=== PATIENT | female | born 1945 | race Caucasian/White ===

== ENCOUNTER → 2019-06-14 15:18 | Outpatient (BNVA) | payer MEDICARE, OTHER, SELFPAY | PROVIDERS: Family Provider Family Medicine; PCP Family Medicine; Visit Provider Emergency Medicine | DX: N39.0 Urinary tract infection, site not specified (principal) | CPT/HCPCS: 81003 ==

== ENCOUNTER 2021-03-26 11:17 | Emergency (ER) | payer MEDICARE, OTHER, SELFPAY ==
[2021-03-26 11:27] VITALS: BP 187/127; PULSE 84; RESP 16; O2SAT 98; BMI 27.4
--- NOTE | 2021-03-26 11:29 | ED_ITS ---
HPI - Neuro Symptoms/Deficit General: Chief Complaint: Dizziness Stated Complaint: DIZZY/NEEDS STROKE EVAL PER DR. RUIZ Time Seen by Provider: 03/26/21 11:28 History of Present Illness: HPI Narrative: Ms James is a 75-year-old lady with history of hypertension and hyperlipidemia presents to the emergency department due to strokelike episode. She reports being at her baseline health with the exception of what she describes as a head cold evolving congestion and mild cough over the past week. This is remained largely the same and is mild to moderate intensity of the description. This morning she woke up and got out of bed at approximately 630 and noticed a dizzy feeling. She had difficulty walking however has difficulty characterizing whether it was a spinning sensation or off-balance sensation. She describes it as her legs not doing what she wants to. She was evaluated at clinic and they are found to have hypertension, facial droop, and visual disturbance. At worst intensity symptoms of off balance have been severe however is now improved. No associated other neurologic symptoms or headache. Denies similar episodes in the past. Supplemental information provided by family feels that over the past year she has had perhaps more confusion and feels like her speech is abnormal today. Overall the course of symptoms has improved. No other specific exacerbating or alleviating factors identified. Review of Systems General: Reports: 10 or more systems reviewed and unremarkable except in HPI and below PFSH ED PFSH: Medical History (Updated 03/26/21 @ 17:14 by Pa Flores MD) Stroke-like episode Social History Smoking and tobacco status: never smoked Alcohol intake: never Physical Exam Narrative: EXAM NARRATIVE: GENERAL/CONSTITUTIONAL - well-appearing. No acute distress. Eyes - PERRL, no conjunctival injection ENMT - Atraumatic external nose and ears. Moist mucous membranes NECK - supple. trachea midline CARDIOVASCULAR - regular rate and rhythm. Peripheral pulses 2+ and equal RESPIRATORY -clear to auscultation bilaterally. No retractions or accessory muscle use. ABDOMEN/GI - Nontender/Nondistended. No tenderness to percussion or evidence of peritonitis MSK - Extremities without obvious deformity or tenderness to palpation SKIN - Warm, Dry NEURO - alert and appropriately oriented. Cranial nerves II through XII intact. Coordination, strength and sensation intact. Course ED course: - Patient was seen and evaluated by me at bedside - Patient placed on cardiac monitors, IV access obtained - Initial evaluation notable for exam as above, NIHSS 0 - Labs notable for no leukocytosis, normal hemoglobin. Metabolic panel with likely evidence of mild dehydration, magnesium is low and replenishment ordered. Urinalysis difficult interpret/atypical given nitrate positive with 4+ bacteria but no other evidence of urinary tract infection. Given age and likely age- related cognitive decline in addition to event today this will be treated as mental status changes associated with UTIs is fairly common in elderly patients. - Imaging notable for chest x-ray with pulmonary nodules which were discussed with the patient including need for follow-up CT. Given neurologic symptoms head imaging was prioritized with contrast and patient only has 1 kidney with borderline creatinine. I do not feel that a second dose of contrast for his CT chest would be beneficial in this patient nor is the evaluation of these p ulmonary nodules necessarily emergent if he can be obtained outpatient in a reasonable period of time. CT head negative for acute process. CTA with less than 50% stenosis in the cervical ICA. Moderate amount of calcified plaque in the cavernous and supraclinoid carotid arteries. These likely are not severe enough to cause acute neurologic findings. - Upon serial reexamination after treatment the patient was similar without recurrence of neurologic abnormalities - Based on patient history, evaluation, labs, and imaging as interpreted the most likely cause of the patient's condition is TIA and urinary tract infection. - Discussed case with neurology, patient will be placed on aspirin, Plavix, already on a statin which I instructed to increase to full dose daily. - The results of ED evaluation were discussed with the patient including prescriptions and/or symptomatic cares (if applicable) including appropriate and responsible use, followup plan, and return precautions. The patient and patient's family verbalized understanding and felt safe for discharge. - Patient discharged in satisfactory condition. Vital Signs: Vital signs: Vital Signs Pulse Rate 62 03/26/21 17:41 Respiratory Rate 14 03/26/21 17:41 Blood Pressure 144/81 03/26/21 17:41 Pulse Oximetry 97 03/26/21 17:41 MDM - Neuro Symptoms/Deficit Medical Records: Attestation: I reviewed the patient's medical records. Lab Data: Attestation: I reviewed the patient's lab results. Labs: Lab Results 03/26/21 03/26/21 03/26/21 11:38 11:38 11:38 WBC 8.3 10^3/uL 10^3/ uL (4.0-10.0) RBC 4.54 10^6/uL 10^6 /uL (4.1-5.3) Hgb 14.0 g/dL g/dL (11.5-15.3) Hct 44.1 % % (37.0-47.0) MCV 97.1 fl fl (81-99) MCH 30.8 pg pg (28.0-34.0) MCHC 31.7 g/dL g/dL (30.0-36.0) RDW 14.7 % % (12.1-15.1) Plt Count 285 10^3/cmm 10^3 /cmm (130-400) MPV 9.2 fL fL (7.4-10.4) Neut % (Auto) 61.1 % % Lymph % (Auto) 28.2 % % Emmet % (Auto) 8.1 % % Eos % (Auto) 1.3 % % Baso % (Auto) 0.6 % % Neut # (Auto) 5.04 10^3/uL 10^3 /uL (1.8-7.7) Lymph # (Auto) 2.3 10^3/uL 10^3/ uL (0.8-4.8) Emmet # (Auto) 0.7 10^3/uL 10^3/ uL (0.2-0.9) Eos # (Auto) 0.1 10^3/uL 10^3/ uL (0.0-0.8) Baso # (Auto) 0.1 10^3/uL 10^3/ uL (0.0-0.1) Nucleated RBC % (a uto) 0 % % Nucleated RBCs # 0.0 /100WBC /100W BC Sodium Cancelled Potassium Cancelled Chloride Cancelled Carbon Dioxide Cancelled Anion Gap Cancelled BUN Cancelled Creatinine Cancelled GFR Calculation Cancelled Glucose Cancelled POC Glucose Calculated Osmolal ity Cancelled Calcium Cancelled Magnesium Cancelled Total Bilirubin Cancelled AST Cancelled ALT Cancelled Alkaline Phosphata se Cancelled Troponin T Baselin e Cancelled Troponin T 120 Min [place] Troponin T NT-Pro-B Natriuret Pep Cancelled Total Protein Cancelled Albumin Cancelled Globulin Cancelled TSH Urine Color Urine Appearance Urine pH Ur Specific Gravit y Urine Protein Urine Glucose (UA) Urine Ketones Urine Blood Urine Nitrate Urine Bilirubin Urine Urobilinogen Ur Leukocyte Justa ase Urine RBC Urine WBC Ur Squamous Epith Cells Amorphous Sediment Urine Bacteria 03/26/21 03/26/21 03/26/21 11:38 12:21 12:21 WBC RBC Hgb Hct MCV MCH MCHC RDW Plt Count MPV Neut % (Auto) Lymph % (Auto) Emmet % (Auto) Eos % (Auto) Baso % (Auto) Neut # (Auto) Lymph # (Auto) Emmet # (Auto) Eos # (Auto) Baso # (Auto) Nucleated RBC % (a uto) Nucleated RBCs # Sodium 132 mmol/L L mmol /L (136-145) Potassium 4.8 mmol/L mmol/L (3.5-5.1) Chloride 97 mmol/L L mmol/ L (98-107) Carbon Dioxide 20 mmol/L L mmol/ L (22-29) Anion Gap 19.8 H (5-19) BUN 23 mg/dL mg/dL (8-23) Creatinine 1.3 mg/dL H mg/dL (0.5-0.9) GFR Calculation Not Reportable Glucose 97 mg/dL mg/dL (65-115) POC Glucose Calculated Osmolal ity 278 mOsm/kg L mOs m/kg (285-295) Calcium 9.5 mg/dL mg/dL (8.5-10.5) Magnesium 1.3 mg/dL L mg/dL (1.7-2.3) Total Bilirubin 0.4 mg/dL mg/dL (0.15-1.2) AST 17 U/L U/L (0-32) ALT 10 U/L U/L (0-33) Alkaline Phosphata se 58 IU/L IU/L (35-105) Troponin T Baselin e 18 ng/L H ng/L (0-10) Troponin T 120 Min [place] Troponin T NT-Pro-B Natriuret Pep 309 pg/mL pg/mL (0-450) Total Protein 7.5 g/dL g/dL (6.6-8.7) Albumin 4.3 g/dL g/dL (3.5-5.2) Globulin 3.2 g/dL g/dL (1.3-4.6) TSH Cancelled 3.80 uIU/mL uIU/m L (0.27-4.20) Urine Color Urine Appearance Urine pH Ur Specific Gravit y Urine Protein Urine Glucose (UA) Urine Ketones Urine Blood Urine Nitrate Urine Bilirubin Urine Urobilinogen Ur Leukocyte Justa ase Urine RBC Urine WBC Ur Squamous Epith Cells Amorphous Sediment Urine Bacteria 03/26/21 03/26/21 03/26/21 13:58 14:21 15:40 WBC RBC Hgb Hct MCV MCH MCHC RDW Plt Count MPV Neut % (Auto) Lymph % (Auto) Emmet % (Auto) Eos % (Auto) Baso % (Auto) Neut # (Auto) Lymph # (Auto) Emmet # (Auto) Eos # (Auto) Baso # (Auto) Nucleated RBC % (a uto) Nucleated RBCs # Sodium Potassium Chloride Carbon Dioxide Anion Gap BUN Creatinine GFR Calculation Glucose POC Glucose 93 mg/dL mg/dL (70-110) Calculated Osmolal ity Calcium Magnesium Total Bilirubin AST ALT Alkaline Phosphata se Troponin T Baselin e Troponin T 120 Min [place] 23.32 ng/L H ng/L (0-10) Delta Troponin T 5.32 ABS# ABS# (0-10) NT-Pro-B Natriuret Pep Total Protein Albumin Globulin TSH Urine Color Yellow (Yellow) Urine Appearance Clear (CLEAR) Urine pH 7 (5-7) Ur Specific Gravit y 1.005 (1.005-1.030) Urine Protein Neg (Negative) Urine Glucose (UA) Norm (Normal) Urine Ketones Negative (Negative) Urine Blood Neg (Negative) Urine Nitrate Positive H (Negative) Urine Bilirubin Neg (Negative) Urine Urobilinogen Norm mg/dL mg/dL (Negative) Ur Leukocyte Justa ase Negative (Negative) Urine RBC Rare /hpf /hpf (0-2) Urine WBC 0-4 /hpf H /hpf (0-5) Ur Squamous Epith Cells None /hpf /hpf (0-5) Amorphous Sediment Not Reportable Urine Bacteria 4+ /hpf H /hpf (NONE) EKG Data^: EKG 1: Attestation: I personally reviewed and interpreted this EKG as follows: EKG interpretation date: 03/26/21 EKG interpretation time: 11:39 Interpretation: Twelve-lead EKG shows a regular rhythm at a rate of 67. GA interval 132, QRS duration 104, QTc 416. Normal axis. Interpretation: Sinus rhythm, nonspecific ST segment abnormalities. EKG 2: Attestation: I personally reviewed and interpreted this EKG as follows: EKG interpretation date: 03/26/21 EKG interpretation time: 13:52 Interpretation: Twelve-lead EKG shows a regular rhythm at a rate of 60. GA interval 141, QRS duration 98, QTc 427. Normal axis. Interpretation: Sinus rhythm. Nonspecific ST segment abnormalities. EKG 3: Attestation: I personally reviewed and interpreted this EKG as follows: EKG interpretation date: 03/26/21 EKG interpretation time: 14:26 Interpretation: Twelve-lead EKG shows a regular rhythm at a rate of 64. GA interval 184, QRS duration 94, QTc 423 Normal axis. Interpretation: Sinus rhythm. Nonspecific ST segment abnormalities. Discharge Plan Discharge Patient Disposition: Home Clinical Impression: Stroke-like episode, Bacteriuria Condition: Stable Prescriptions: New Plavix 75 mg tablet 75 mg PO DAILY Qty: 21 RF: 0 No Action lisinopril 20 mg tablet 40 mg PO QAM RF: 0 DIALYVITE 3000 3-70-15 mg-mcg-mg tablet 1 tab PO DAILY RF: 0 allopurinol 100 mg tablet 100 mg PO DAILY RF: 0 cinnamon bark 500 mg capsule 1,000 mg PO QAM RF: 0 aspirin [Ecotrin Low Strength] 81 mg tablet,delayed release (DR/EC) 81 mg PO QAM RF: 0 cholecalciferol (vitamin D3) 25 mcg (1,000 unit) capsule 25 mcg PO QAM RF: 0 magnesium 200 mg tablet 400 mg PO QAM RF: 0 gabapentin 300 mg capsule 300 mg PO BEDTIME RF: 0 Vitamin C 1,000 mg Tablet 1,000 mg PO QAM RF: 0 simvastatin 40 mg tablet 20 mg PO EVERY OTHER DAY RF: 0 levothyroxine 25 mcg tablet 25 mcg PO QAM RF: 0 oxycodone-acetaminophen [Endocet] 5-325 mg tablet 1 tab PO Q4H PRN (Reason: Pain) RF: 0 Refresh 1 % Drops, Liquid Gel 1 - 2 drp OPHTHALMIC (EYE) BID PRN (Reason: Dry Eyes) RF: 0 Restasis 0.05 % dropperette 1 drp ophthalmic (eye) BID RF: 0 Tums 1 tab PO PRN RF: 0 Discharge Orders: Discharge ED (Routine); Ordered 03/26/21 Ordered By: Pa Flores Referrals: Lasha York [Primary Care Provider] - Discharge Diet: Usual diet Discharge Activity: Resume usual activity Patient Instructions: Transient Ischemic Attack (ED), Dehydration (ED), Urinary Tract Infection in Women (ED) Activity Restrictions/Additional Instructions: Thank you for visiting the emergency department. You were seen and evaluated for neurologic symptoms. The exact cause of your symptoms is unclear though with resolution may be related to a transient ischemic attack. Please continue your aspirin, begin taking Plavix, and continue your daily statin medication as discussed. I will message our case finisher for follow-up with Dr. Barrios Please return to the emergency department for any recurrence of neurologic symptoms, new neurologic symptoms, or anything else that you are concerned about and feel needs emergency department evaluation. Coding Level of Care Code ED Technical Maintenance Specialist for Lindsay Jacobson
--- NOTE | 2021-03-26 11:39 | CT_ITS ---
WS: [id number] CT HEAD NONCONTRAST HISTORY: dizzy, stroke like symptoms TECHNIQUE: Contiguous axial imaging performed through the brain in 2.5 mm imaging. Bone and soft tiss ue windows. Sagittal and coronal reformats reviewed. All CT scans at [facility] use at least one of these dose optimization techniques: automated exposure control; mA and/or kV adjustment per pa tient size (includes targeted exams where dose is matched to clinical indication); or iterative recon struction. DLP: 828.56 mGy.cm COMPARISON: None available. No acute intracranial hemorrhage, midline shift or mass effect. Mild atrophy and mild chronic microvascular ischemic disease. Ventricles: Normal size with no hydrocephalus. No inferior displacement of the cerebellar tonsils. Moderate atherosclerotic plaque within the intrac ranial carotid arteries. Paranasal sinuses: As visualized are clear. Mastoid air cells: Well pneumatized. Calvarium and scalp: No fracture. Prominent bony exostosis from the LEFT parietal bone. CT/CT head wo con* [id number] IMPRESSION: No acute intracranial hemorrhage or edema. Mild atrophy.
--- NOTE | 2021-03-26 11:39 | XRR_ITS ---
PROCEDURE INFORMATION: Exam: XR Chest Exam date and time: 03/26/2021 11:39 AM Age: 75 years old Clinical indication: Cough and dizziness. Hypertension, facial droop and visual disturbance. Evolving congestion and mild cough over the past week. Stroke-like symptoms. TECHNIQUE: Imaging protocol: XR of the chest. Views: 1 view. COMPARISON: No relevant prior studies available. FINDINGS: Lungs: No pulmonary consolidation. There are nodular densities in the chest bilaterally measuring up to 7.1 mm. Pleural spaces: No pleural effusion. No pneumothorax. Heart/Mediastinum: The cardiac silhouette is unremarkable. No gross evidence of pneumomediastinum. Bones/joints: There is been kyphoplasty at multiple levels. There are multiple compression fractures in the spine of indeterminate age. XR/XR chest 1V portable [id number] IMPRESSION: 1. Pulmonary nodules identified bilaterally. Recommend CT chest to better characterize. 2. Age-indeterminate compression fractures in the spine. There has been prior kyphoplasty at multiple levels.
--- NOTE | 2021-03-26 11:40 | ECG_ITS ---
[facility] Test Date: 2021-03-26 Pat Name: Abel James Department: Room: Gender: Female Appliance Assembler: : 1945 Requested By: Pa Flores Order Number: [id number] Aleta MD: Abimael Amador M.D. Measurements Intervals [place] Rate: 64 P: 38 NJ: 184 QRS: 55 QRSD: 94 T: 57 QT: 414 QTc: 428 Interpretive Statements SINUS RHYTHM MODERATE ST DEPRESSION [0.05+ mV ST DEPRESSION] Compared to ECG 03/26/2021 13:49:17 ST (T wave) deviation now present Electronically Signed On 03-27-2021 8:48:46 MARKETING COMMUNICATIONS ASSOCIATE by Abimael Amador M.D. [id number]
[2021-03-26 11:51] LABS: Basophils # 0.1 10^3/uL (0.0-0.1); Basophils % 0.6 %; Eosinophils # 0.1 10^3/uL (0.0-0.8); Eosinophils % 1.3 %; Hematocrit 44.1 % (37.0-47.0); Lymphocytes # 2.3 10^3/uL (0.8-4.8); Lymphocytes % 28.2 %; Mean Corpuscular HGB Conc 31.7 g/dL (30.0-36.0); Mean Corpuscular Hemoglobin 30.8 pg (28.0-34.0); Mean Corpuscular Volume 97.1 fl (81-99); Mean Platelet Volume 9.2 fL (7.4-10.4); Monocytes # 0.7 10^3/uL (0.2-0.9); Monocytes % 8.1 %; Neutrophils # 5.04 10^3/uL (1.8-7.7); Neutrophils % 61.1 %; Nucleated Red Blood Cells % 0 %; Platelet Count 285 10^3/cmm (130-400); Red Blood Count 4.54 10^6/uL (4.1-5.3); Red Cell Distribution Width 14.7 % (12.1-15.1); White Blood Count 8.3 10^3/uL (4.0-10.0)
--- NOTE | 2021-03-26 12:20 | CT_ITS ---
WS: [id number] CT ANGIOGRAM CEREBRAL AND CAROTID ARTERIES HISTORY: dizzy, stroke like episode TECHNIQUE: CT angiogram is performed of the carotid and cerebral arteries. During arterial injection imaging is obtained from the skull vertex to the aortic arch in 1.25 mm imaging. Coronal and sagittal reformats are submitted. Additional multi planar reformats of the carotid and cerebral arteries are submitted, MIP imaging also reviewed. NASCET criteria utilized. [facility] at least one of these dose optimization techniques: automated exposure control; mA and/or kV adjust ment per patient size (includes targeted exams where dose is matched to clinical indication); or iter ative reconstruction. CONTRAST: Visipaque 320; 95 mL IV. DLP: 1856.33 mGy-cm. COMPARISON: Noncontrast head CT 03/26/2021. Carotid Angiogram: Right carotid: Common carotid artery: Arises normally from the innominate artery. No significant plaque or stenosis. Internal carotid artery: Moderate calcified plaque at the origin of the ICA. Stenosis less than 50%. External carotid artery: Moderate plaque at the origin. Left carotid: Common carotid artery: Arises normally from the aorta. No significant plaque or stenosis. Internal carotid artery: Moderate amount of calcified plaque at the bifurcation. Stenosis less than 5 0%. External carotid artery: Patent. Right vertebral artery: Circumferential calcified plaque in the proximal ICA with stenosis near 50% n ear C7. Left vertebral artery: Calcified plaque proximally. No occlusion. Subclavian arteries: RIGHT subclavian without significant stenosis. LEFT subclavian is partially obsc ured by contrast injection. Upper thorax: Normal. Thyroid gland: Small bilateral, subcentimeter thyroid nodules. Osseous structures: Unremarkable. CEREBRAL ANGIOGRAM: Intracranial vertebral arteries: Normal with no significant atherosclerosis. Basilar artery: No significant stenosis or occlusion. No aneurysm. Intracranial Internal carotid arteries: Tortuosity and a moderate amount of calcified plaque through the cavernous carotid arteries. Calcification extends supraclinoid. No occlusions or aneurysm. Middle cerebral arteries: Normal. Anterior cerebral arteries and ACOM: Normal. Posterior cerebral arteries and PCOM's: Small caliber posterior communicating arteries. Dural venous sinuses are normally enhancing. Mastoid air cells: Normal. Paranasal sinuses: Normal. Calvarium: Normal. CT/CT angio headneck* [id number] IMPRESSION: 1. Calcified plaque at the origins of the cervical internal carotid arteries. Stenosis less than 50%. 2. Moderate amount of calcified plaque through the cavernous and supraclinoid intracranial carotid arteries. 3. No aneurysms or occlusions.
[2021-03-26 12:56] LABS: Troponin(5th) Baseline 18 ng/L (0-10)
[2021-03-26 13:22] LABS: Alanine Aminotransferase 10 U/L (0-33); Albumin Level 4.3 g/dL (3.5-5.2); Alkaline Phosphatase 58 IU/L (35-105); Anion Gap 19.8 (5-19); Aspartate Amino Transferase 17 U/L (0-32); Blood Urea Nitrogen 23 mg/dL (8-23); Calcium 9.5 mg/dL (8.5-10.5); Carbon Dioxide 20 mmol/L (22-29); Chloride 97 mmol/L (98-107); Globulin 3.2 g/dL (1.3-4.6); Glucose 97 mg/dL (65-115); Magnesium 1.3 mg/dL (1.7-2.3); NT Pro B Type Natriuretic Pept 309 pg/mL (0-450); Osmolality Calculated 278 mOsm/kg (285-295); Potassium 4.8 mmol/L (3.5-5.1); Sodium 132 mmol/L (136-145); Total Bilirubin 0.4 mg/dL (0.15-1.2); Total Protein 7.5 g/dL (6.6-8.7)
--- NOTE | 2021-03-26 13:24 | PC.NURSE ---
Continual cardiac, bp, and SpO2 monitoring initiated upon arrival into room.
[2021-03-26] MEDS: sodium chloride 0.9% 1,000 ML 999 ML IV (13:40)
[2021-03-26 13:41] VITALS: BP 154/101; PULSE 60; RESP 14; O2SAT 97
[2021-03-26 14:08] VITALS: BP 162/81; BP 163/87; BP 175/99; PULSE 60; PULSE 62; PULSE 65
[2021-03-26 14:09] VITALS: BP 163/87; PULSE 62; RESP 15
[2021-03-26] MEDS: iodixanol 320 mg/mL 100mL Btl IV (14:23)
[2021-03-26 15:09] LABS: Troponin 5 2HR 23.32 ng/L (0-10); Troponin 5 2HR Delta 5.32 ABS# (0-10)
[2021-03-26] MEDS: magnesium sulfate premix 2 GM/50 ML PIGGYBACK IV (15:47)
[2021-03-26 16:12] LABS: Bilirubin Urine Neg (Negative); Blood Urine Neg (Negative); Glucose Urine UA Norm (Normal); Ketones Urine Negative (Negative); Leukocyte Esterase Urine Negative (Negative); Nitrate Urine Positive (Negative); Protein Urine Neg (Negative); Specific Gravity, Urine 1.005 (1.005-1.030); Urine Appearance Clear (CLEAR); Urine Color Yellow (Yellow); Urobilinogen Urine Norm (Negative); pH Urine 7 (5-7)
[2021-03-26 16:13] LABS: Add Urine Microscopic? YES
[2021-03-26 16:20] LABS: Add Urine Culture? Yes; Bacteria Urine 4+ /hpf; RBC Urine RARE /hpf (0-2); WBC Urine 0-4 /hpf (0-5)
--- NOTE | 2021-03-26 17:40 | ECG_ITS ---
[facility] Test Date: 2021-03-26 Pat Name: Abel James Department: Room: Gender: Female Harp Regulator: : 1945 Requested By: Pa Flores Order Number: [id number] Aleta MD: Abimael Amador M.D. Measurements Intervals [place] Rate: 60 P: 38 NJ: 141 QRS: 53 QRSD: 98 T: 52 QT: 427 QTc: 427 Interpretive Statements SINUS RHYTHM No previous ECG available for comparison Electronically Signed On 03-27-2021 9:17:07 MULTIPLE PRESSURE RIVETER OPERATOR by Abimael Amador M.D. [id number]
[2021-03-26 17:41] VITALS: BP 144/81; PULSE 62; RESP 14; O2SAT 97
[2021-03-26 17:50] LABS: Glucose Point of Care 93 mg/dL (70-110)
--- NOTE | 2021-03-27 08:07 | PC.SOCIAL ---
ED referral received by Dr Flores for Neurolgy Dr Barrios appt in 2 weeks. Emailed Neurology group and they will review and reach out to patient.
--- NOTE | 2021-05-01 13:36 | DCPLANNER ---
Addendum entered by Lizzie Muniz 05/08/21 15:21: Patient had a follow up appointment scheduled with Dr. Barrios - appointment was cancelled. Original Note: Patient has a follow up appointment scheduled with Dr. Barrios for 05.06.21 at 8:15. Clinic will call patient with appointment information.
== END 2021-03-26 17:41 | disposition home or self-care (01) ==
PROVIDERS: Emergency Provider Emergency Medicine; PCP Family Medicine
DX: R68.89 Other general symptoms and signs (principal); R82.71 Bacteriuria; Z79.82 Long term (current) use of aspirin
CPT/HCPCS: 36416; 70450; 70496; 70498; 71045; 80053; 81001; 82962; 83735; 83880; 84443; 84484; 85025; 87077; 87086; 87186; 93005; 96365; 99284; J3475; J7030; Q9967

== ENCOUNTER 2022-01-20 13:01 | Outpatient (CLI) | payer MEDICARE, OTHER, SELFPAY ==
--- NOTE | 2022-01-20 13:00 | CT_ITS ---
WS: [id number] CT HEAD TECHNIQUE: Noncontrast CT of the head obtained from the skullbase to the vertex. CLINICAL INFORMATION: S09.90XA - Unspecified injury of head, initial encounter COMPARISON: CT March 26, 2021 DLP: 1021.[address] scans at [facility] use at least one of these dose optimization techniques: automated e xposure control; mA and/or kV adjustment per patient size (includes targeted exams where dose is matc hed to clinical indication); or iterative reconstruction. FINDINGS: No evidence of intracranial hemorrhage or mass effect. Ventricular system and basal cisterns are ford nt. Mild small vessel changes with mild parenchymal volume loss. No extra-axial fluid collections. No evidence of mass or mass effect. Paranasal sinuses and mastoid air cells are well aerated. . Bony osteoma LEFT parietal calvarium. Nor mal posterior nasopharynx. CT/CT head wo con* [id number] IMPRESSION: 1. No evidence of intracranial hemorrhage or mass effect. 2. Mild small vessel changes. Mild parenchymal volume loss. 3. Intracranial vascular calcification. 4. No acute intracranial findings.
== END 2022-01-20 13:02 | disposition home or self-care (01) ==
LOC: RAD 13:02
PROVIDERS: PCP Family Medicine; Visit Provider Nurse Practitioner Family
DX: S09.90XA Unspecified injury of head, initial encounter (principal); X58.XXXA Exposure to other specified factors, initial encounter; R39.9 Unspecified symptoms and signs involving the genitourinary system
CPT/HCPCS: 70450; 81000

== ENCOUNTER 2022-02-19 06:00 | Outpatient (RCR) | payer MEDICARE, OTHER, SELFPAY | END 2022-03-04 23:59 | disposition home or self-care (01) | LOC: MPT 06:00 | PROVIDERS: PCP Family Medicine; Visit Provider Family Medicine | DX: M54.42 Lumbago with sciatica, left side (principal); M54.41 Lumbago with sciatica, right side; G89.29 Other chronic pain; Z98.890 Other specified postprocedural states | CPT/HCPCS: 97110; 97140; 97162; G0283 ==

== ENCOUNTER 2022-03-05 06:00 | Outpatient (RCR) | payer MEDICARE, OTHER, SELFPAY | END 2022-04-04 23:59 | disposition home or self-care (01) | LOC: MPT 06:00 | PROVIDERS: PCP Family Medicine; Visit Provider Family Medicine | DX: M54.42 Lumbago with sciatica, left side (principal); M54.41 Lumbago with sciatica, right side; G89.29 Other chronic pain; Z98.890 Other specified postprocedural states | CPT/HCPCS: 97110; 97140; G0283 ==

== ENCOUNTER 2023-02-18 06:00 | Outpatient (RCR) | payer MEDICARE, OTHER, SELFPAY | END 2023-03-04 23:59 | disposition home or self-care (01) | LOC: SPT 06:00 | PROVIDERS: Visit Provider Family Medicine | DX: N39.46 Mixed incontinence (principal) | CPT/HCPCS: 97161; 97530 ==

== ENCOUNTER 2023-12-29 10:04 | Emergency (ER) | payer MEDICARE, OTHER, SELFPAY ==
[2023-12-29 10:10] VITALS: BP 104/65; PULSE 80; RESP 18; TEMP 36.4; O2SAT 98; BMI 24.7
--- NOTE | 2023-12-29 10:17 | XRR_ITS ---
PROCEDURE INFORMATION: Exam: XR Left Hip Exam date and time: 12/29/2023 10:23 AM Age: 78 years old Clinical indication: Injury or trauma; Fall; Blunt trauma (contusions or hematomas); Left; Hip; Injury date: 12/28/23 TECHNIQUE: Imaging protocol: Radiologic exam of the left hip. Views: 2 or 3 views hip with pelvis when performed. COMPARISON: No relevant prior studies available. FINDINGS: Bones/joints: There may be subtle fractures involving the superior and inferior pubic rami. No definite fractures noted involving the proximal left femur. Hip joint spaces relatively well preserved. Small osteophytes/enthesophytes project off the greater trochanter. Soft tissues: Heterotopic ossification is seen adjacent to the greater trochanter. No acute appearing soft tissue abnormalities are noted. XR/XR hip LT 2-3V wo/w pel* [id number] IMPRESSION: Suspect subtle fractures involving the superior and inferior pubic rami. Recommend correlation with CT.
--- NOTE | 2023-12-29 10:17 | XRR_ITS ---
PROCEDURE INFORMATION: Exam: XR Left Shoulder Exam date and time: 12/29/2023 10:21 AM Age: 78 years old Clinical indication: Injury or trauma; Fall; Blunt trauma (contusions or hematomas); Shoulder; Left; Injury date: 12/28/23 TECHNIQUE: Imaging protocol: Radiologic exam of the left shoulder. Views: 2 or more views. COMPARISON: CT angio headneck* [id number] 03/26/2021 2:15 PM FINDINGS: Bones/joints: No fracture or dislocation is appreciated. There are mild degenerative changes involving the AC joint with capsular mineralization. Soft tissues: Normal. XR/XR shoulder LT min 2V* [id number] IMPRESSION: No acute findings.
--- NOTE | 2023-12-29 10:20 | CT_ITS ---
WS: [id number] CT HEAD TECHNIQUE: Noncontrast CT of the head obtained from the skullbase to the vertex. CLINICAL INFORMATION: fall COMPARISON: 2021 DLP: 2801.[address] scans at [facility] use at least one of these dose optimization techniques: automated e xposure control; mA and/or kV adjustment per patient size (includes targeted exams where dose is matc hed to clinical indication); or iterative reconstruction. FINDINGS: No evidence of intracranial hemorrhage or mass effect. Ventricular system and basal cisterns are ford nt. Mild small vessel changes with mild parenchymal volume loss. No extra-axial fluid collections. No evidence of mass or mass effect. Vascular calcification. Benign basal ganglia calcifications. Bony osteoma LEFT parietal calvarium. Paranasal sinuses and mastoid air cells well aerated. CT/CT head wo con* [id number] IMPRESSION: 1. No evidence of intracranial hemorrhage or mass effect. 2. No acute intracranial findings.
--- NOTE | 2023-12-29 10:20 | XRR_ITS ---
PROCEDURE INFORMATION: Exam: XR Right Hand Exam date and time: 12/29/2023 10:30 AM Age: 78 years old Clinical indication: Injury or trauma; Other: Fall off horse; Blunt trauma (contusions or hematomas); Hand; Right; Injury date: 12/28/23; Injury details: PT fell off horse yesterday, PT C/O of left hip pain. PT reports hitting head. PT denies n/v. TECHNIQUE: Imaging protocol: Radiologic exam of the right hand. Views: 3 or more views. COMPARISON: No relevant prior studies available. FINDINGS: Bones/joints: No fracture or dislocation is appreciated. There is joint space narrowing with osteophyte formation involving the 1st carpometacarpal joint and IP joints. There are central erosions involving the DIP joints. No erosions are otherwise appreciated. Bony mineralization is normal. Soft tissues: Normal. XR/XR hand RT min 3V* [id number] IMPRESSION: 1. Osteoarthritis/erosive osteoarthritis.
--- NOTE | 2023-12-29 10:20 | CT_ITS ---
WS: [id number] Noncontrast CT LEFT hip TECHNIQUE: Noncontrast CT LEFT hip with coronal and sagittal reformatted images. CLINICAL INFORMATION: fall COMPARISON: None. DLP: 283.[address] scans at [facility] use at least one of these dose optimization techniques: automated e xposure control; mA and/or kV adjustment per patient size (includes targeted exams where dose is matc hed to clinical indication); or iterative reconstruction. FINDINGS: Osteopenia. Comminuted fractures involving the LEFT superior pubic ramus extending to the pubic symph ysis. Comminuted fracture LEFT inferior pubic ramus involving the midshaft with overlapping fragments . Additional buckle fracture of the inferior pubic ramus distally at the pubic symphysis. Hematoma an d induration about the pubic rami fractures. Moderate to advanced arthritis LEFT hip. Acetabulum appears intact. Femoral head and femoral neck luzmaria ear intact. No evidence of avascular necrosis. Enthesophytes at the greater trochanter. CT/CT hip LT wo con* [id number] IMPRESSION: 1. Pubic rami fractures involving the LEFT superior and inferior pubic ramus w ith mild displacement extending to the pubic symphysis. Fracture of the mid bod y inferior pubic ramus with overlapping fracture fragments. 2. LEFT acetabulum and LEFT femoral head and neck appear intact. 3. Osteopenia. 4. Associated edema and soft tissue hematoma about the pubic rami fractures.
--- NOTE | 2023-12-29 10:20 | CT_ITS ---
WS: [id number] CT CERVICAL TRAUMA TECHNIQUE: Noncontrast CT of the cervical spine with coronal and sagittal reformatted images. CLINICAL INFORMATION: fall COMPARISON: None. DLP: 2801.[address] scans at [facility] use at least one of these dose optimization techniques: automated e xposure control; mA and/or kV adjustment per patient size (includes targeted exams where dose is matc hed to clinical indication); or iterative reconstruction. FINDINGS: Straightening of the normal cervical lordosis. Mild cervical curve. Normal craniocervical junction. N ormal C1-C2 articulation. Dens is normal in appearance. Normal occipital condyles. No high-grade spin al canal narrowing. Normal C1 ring. No evidence of acute fracture or dislocation. Small disc osteophy te protrusions C4-C5 and C5-C6. Mild central canal stenosis C5-C6. Carotid bulb calcification. Nodular thyroid RIGHT greater than LEFT. This can be followed up with ul trasound on elective basis. Normal prevertebral soft tissues. Mastoids air cells are well aerated. CT/CT cervical spin wo con* [id number] IMPRESSION: No evidence of acute fracture or dislocation.
--- NOTE | 2023-12-29 10:20 | CT_ITS ---
WS: [id number] CT FACIAL BONES TECHNIQUE: Noncontrast facial bones with coronal and sagittal reformatted images. CLINICAL INFORMATION: fall COMPARISON: None. DLP: 2801.[address] scans at [facility] use at least one of these dose optimization techniques: automated e xposure control; mA and/or kV adjustment per patient size (includes targeted exams where dose is matc hed to clinical indication); or iterative reconstruction. FINDINGS: LEFT orbit is normal in appearance. LEFT orbital floor appears intact. No acute LEFT orbital fracture s. Chronic RIGHT to LEFT nasal septal deviation with bilateral laureen bullosa. Normal pterygoid plate s. No evidence of mandibular fracture or dislocation. Dental artifact degrades some images. Normal po sterior nasopharynx. Pannus at the C1-C2 articulation. Vascular calcification. CT/CT facial bones wo con* [id number] IMPRESSION: No acute facial fractures
--- NOTE | 2023-12-29 10:21 | ED_ITS ---
HPI - Fall 2 General: Chief Complaint: Fall Stated Complaint: fall Time Seen by Provider: 12/29/23 10:16 Source: patient Mode of arrival: ambulatory Limitations: no limitations History of Present Illness: 78-year-old female states she had a fall last night states she had fell outside on gravel she complains of left hip pain she also states she has left shoulder pain she hit her head as well has bruising to her face she complains of a headache. Rates her pain a 6 out of 10 states the worst is in her hip and pelvis. She states she also hit her right hand as well. Associated symptoms-after fall: Reports headache(s) and neck pain; Denies abdominal pain or chest pain Related Data Home Medications Medication Instructions Recorded Confirmed ascorbic acid (vitamin C) 1,000 mg 1,000 mg PO QAM 03/26/21 12/29/23 tablet (Vitamin C) aspirin 81 mg tablet,delayed 81 mg PO QAM 03/26/21 12/29/23 release (Ecotrin Low Strength) carboxymethylcellulose sodium 1 % 1 - 2 drp ophthalmic (eye) BID PRN 03/26/21 12/29/23 eye liquid gel drops Dry Eyes cholecalciferol (vitamin D3) 25 25 mcg PO QAM 03/26/21 12/29/23 mcg (1,000 unit) capsule cinnamon bark 500 mg capsule 1,000 mg PO QAM 03/26/21 12/29/23 cyclosporine 0.05 % eye drops in a 1 drp ophthalmic (eye) BID 03/26/21 12/29/23 dropperette (Restasis) folic acid 3 mg-vit B complex with 1 tab PO DAILY 03/26/21 12/29/23 C-selenium 70 mcg-zinc 15 mg tablet (DIALYVITE) gabapentin 300 mg capsule 300 mg PO BEDTIME 03/26/21 12/29/23 levothyroxine 25 mcg tablet 25 mcg PO QAM 03/26/21 12/29/23 lisinopril 20 mg tablet 40 mg PO QAM 03/26/21 12/29/23 simvastatin 40 mg tablet 20 mg PO EVERY OTHER DAY 03/26/21 12/29/23 biotin 1 mg capsule 1 mg PO DAILY 12/29/23 12/29/23 cyclobenzaprine 5 mg tablet 5 mg PO TID PRN Muscle Spasm 12/29/23 12/29/23 ferrous sulfate 325 mg (65 mg 325 mg PO DAILY 12/29/23 12/29/23 iron) tablet Previous Rx's Medication Instructions Recorded clopidogrel 75 mg tablet (Plavix) 75 mg PO DAILY #21 tabs 03/26/21 oxycodone-acetaminophen 5 mg-325 1 tab PO Q4H PRN Pain #14 tabs 12/29/23 mg tablet (Endocet) Allergies Allergy/AdvReac Type Severity Reaction Status Date / Time Iodinated Contrast Media Allergy pts Verified 02/23/23 09:48 daughter states pt has one kidney and cant have any kind shellfish derived Allergy Unknown Verified 02/23/23 09:48 dyes Allergy pts Uncoded 02/23/23 09:48 daughter states pt has one kidney and cant have any kind Review of Systems 2 Const: Denies: fever(s), chills, body aches or change in appetite ENMT: Denies: throat pain or dental pain Card: Denies: chest pain Resp: Denies: dyspnea GI: Denies: abdominal pain, nausea, vomiting or diarrhea Musc: Reports: neck pain and extremity pain; Denies: back pain Skin/Breast: Denies: rash Neuro: Reports: headache(s) Kimo/Lymph: Reports: easy bruising PFSH ED 2 PFSH: Medical History Stroke-like episode Social History Smoking and tobacco/nicotine status: never used tobacco/nicotine Alcohol intake: never Substance/Drug Use: never Female Reproductive History: Spontaneous abortions: No Physical Exam 2 Const: COMMON NORMALS: no acute distress, patient oriented x3 and healthy appearing HENMT: COMMON NORMALS: normocephalic HEAD & SCALP: normocephalic OTHER: Bruising noted to left forehead and face Eye: COMMON NORMALS: Equal, round and reactive pupils present and EOMs intact bilaterally PUPIL: Yes Equal, round and reactive pupils present Neck/C-Spine: COMMON NORMALS: full ROM and supple Chest: COMMONS NORMALS: normal inspection of the chest Resp: COMMON NORMALS: normal respiratory effort, No retractions, No use of accessory muscles and clear to auscultation bilaterally AUSCULTATION: clear to auscultation bilaterally Cardio: COMMON NORMALS: regular rate, regular rhythm and No murmurs present (Cardio) RATE: regular rate RHYTHM: regular rhythm GI: COMMON NORMALS: Normal to inspection, nondistended, normoactive bowel sounds present, Soft to palpation, non-tender and no masses PALPATION: Yes Soft to palpation Extremity: COMMON NORMALS: full ROM NARRATIVE EXTREMITY EXAM: Tenderness noted to the left hip she has bruising and tenderness also to the left shoulder and right hand Neuro: COMMON NORMALS: patient oriented x3, moves all extremities and no focal motor deficits Psych: COMMON NORMALS: mental status grossly normal, Normal thought process present and cooperative THOUGHT PROCESS: Normal thought process present Skin: COMMON NORMALS: no rashes or lesions noted and no wounds GENERAL SKIN EXAM: no rashes or lesions noted Course 2 Vital Signs: Vital signs: Vital Signs Temperature 97.6 F 12/29/23 10:10 Pulse Rate 80 12/29/23 10:10 Respiratory Rate 18 12/29/23 10:10 Blood Pressure 101/62 12/29/23 12:45 Pulse Oximetry 93 12/29/23 12:45 Oxygen Delivery Me thod Room Air 12/29/23 10:10 MDM - Fall Medical Decision Making Patient presents with pubic rami fracture no other fractures noted her pain has been under control here did offer admission she states she like to try to rehab at home informed her to weight-bear only as tolerated we will prescribe her pain meds we will get her follow-up with orthopedics she is return if worsening she understands agrees to plan Medical Records I reviewed the patient's medical records. Lab Data I reviewed the patient's lab results. 12/29/23 11:00 12/29/23 11:00 Radiology Impressions Hip/Pelvis X-Ray 12/29/23 10:17 IMPRESSION: Suspect subtle fractures involving the superior and inferior pubic rami. Recommend correlation with CT. Shoulder X-Ray 12/29/23 10:17 IMPRESSION: No acute findings. Cervical Spine CT 12/29/23 10:20 IMPRESSION: No evidence of acute fracture or dislocation. Face CT 12/29/23 10:20 IMPRESSION: No acute facial fractures Hand X-Ray 12/29/23 10:20 IMPRESSION: 1. Osteoarthritis/erosive osteoarthritis. Head CT 12/29/23 10:20 IMPRESSION: 1. No evidence of intracranial hemorrhage or mass effect. 2. No acute intracranial findings. Hip CT 12/29/23 10:20 IMPRESSION: 1. Pubic rami fractures involving the LEFT superior and inferior pubic ramus with mild displacement extending to the pubic symphysis. Fracture of the mid body inferior pubic ramus with overlapping fracture fragments. 2. LEFT acetabulum and LEFT femoral head and neck appear intact. 3. Osteopenia. 4. Associated edema and soft tissue hematoma about the pubic rami fractures. Laboratory Results WBC 9.07 10^3/uL (3.29-11.43) 12/29/23 11:00 RBC 3.44 10^6/uL (3.85-5.65) L 12/29/23 11:00 Hgb 10.70 g/dL (11.27-16.99) L 12/29/23 11:00 Hct 33.7 % (36-47) L 12/29/23 11:00 MCV 98.0 fl (85-98) 12/29/23 11:00 MCH 31.1 pg (27-33) 12/29/23 11:00 MCHC 31.8 g/dL (30-55) 12/29/23 11:00 RDW 13.9 % (12.1-15.1) 12/29/23 11:00 Plt Count 184 10^3/cmm (157-399) 12/29/23 11:00 MPV 9.2 fL (7.4-10.4) 12/29/23 11:00 Neut % (Auto) 64.4 % 12/29/23 11:00 Lymph % (Auto) 21.2 % 12/29/23 11:00 Braxton % (Auto) 10.0 % 12/29/23 11:00 Eos % (Auto) 3.1 % 12/29/23 11:00 Baso % (Auto) 0.4 % 12/29/23 11:00 Neut # (Auto) 5.84 10^3/uL (1.8-7.7) 12/29/23 11:00 Lymph # (Auto) 1.9 10^3/uL (0.8-4.8) 12/29/23 11:00 Braxton # (Auto) 0.9 10^3/uL (0.2-0.9) 12/29/23 11:00 Eos # (Auto) 0.3 10^3/uL (0.0-0.8) 12/29/23 11:00 Baso # (Auto) 0.0 10^3/uL (0.0-0.1) 12/29/23 11:00 Nucleated RBC % (auto) 0 % 12/29/23 11:00 Nucleated RBCs # 0.0 /100WBC 12/29/23 11:00 PT 13.40 SECONDS (12.1-14.9) 12/29/23 11:00 INR 0.99 (0.8-1.2) 12/29/23 11:00 Sodium 136 mmol/L (136-145) 12/29/23 11:00 Potassium 4.9 mmol/L (3.5-5.1) 12/29/23 11:00 Chloride 102 mmol/L (98-107) 12/29/23 11:00 Carbon Dioxide 21 mmol/L (22-29) L 12/29/23 11:00 Anion Gap 17.9 (5-19) 12/29/23 11:00 BUN 43 mg/dL (8-23) H 12/29/23 11:00 Creatinine 1.7 mg/dL (0.5-0.9) H 12/29/23 11:00 GFR Calculation Not Reportable 12/29/23 11:00 Glucose 114 mg/dL (65-115) 12/29/23 11:00 Calculated Osmolality 294 mOsm/kg (285-295) 12/29/23 11:00 Calcium 9.1 mg/dL (8.5-10.5) 12/29/23 11:00 Total Bilirubin 0.4 mg/dL (0.15-1.2) 12/29/23 11:00 AST 29 U/L (0-32) 12/29/23 11:00 ALT 18 U/L (0-33) 12/29/23 11:00 Alkaline Phosphatase 66 U/L (35-105) 12/29/23 11:00 Total Protein 7.2 g/dL (6.6-8.7) 12/29/23 11:00 Albumin 4.2 g/dL (3.5-5.2) 12/29/23 11:00 Globulin 3.0 g/dL (1.3-4.6) 12/29/23 11:00 All radiology interpretation(s) finalized by discharge Discharge Plan Discharge Patient Disposition: Home Clinical Impression: Closed fracture of pubic ramus Qualifiers: Encounter type: initial encounter Laterality: left Qualified Code(s): S32.592A - Other specified fracture of left pubis, initial encounter for closed fracture Condition: Stable Prescriptions: Continued Endocet 5-325 mg tablet 1 tab PO Q4H PRN (Reason: Pain) Qty: 14 0RF No Action lisinopril 20 mg tablet 40 mg PO QAM DIALYVITE 3000 3-70-15 mg-mcg-mg tablet 1 tab PO DAILY cinnamon bark 500 mg capsule 1,000 mg PO QAM aspirin [Ecotrin Low Strength] 81 mg tablet,delayed release (DR/EC) 81 mg PO QAM cholecalciferol (vitamin D3) 25 mcg (1,000 unit) capsule 25 mcg PO QAM gabapentin 300 mg capsule 300 mg PO BEDTIME ascorbic acid (vitamin C) [Vitamin C] 1,000 mg Tablet 1,000 mg PO QAM simvastatin 40 mg tablet 20 mg PO EVERY OTHER DAY levothyroxine 25 mcg tablet 25 mcg PO QAM carboxymethylcellulose sodium [Refresh] 1 % Drops, Liquid Gel 1 - 2 drp OPHTHALMIC (EYE) BID PRN (Reason: Dry Eyes) cyclosporine [Restasis] 0.05 % dropperette 1 drp ophthalmic (eye) BID clopidogrel [Plavix] 75 mg tablet 75 mg PO DAILY Qty: 21 0RF ferrous sulfate 325 mg (65 mg iron) Tablet 325 mg PO DAILY cyclobenzaprine 5 mg Tablet 5 mg PO TID PRN (Reason: Muscle Spasm) biotin 1 mg Capsule 1 mg PO DAILY Discharge Orders: Discharge ED (Routine); Ordered 12/29/23 Ordered By: Radha Valerio Referrals: Peter Blancas DO [Physician] - 1-3 days Samantha Guy MD [Primary Care Provider] - Discharge Diet: Advance as tolerated Discharge Activity: Increase activity as tolerated Patient Instructions: Pelvic Fracture (ED), Opioid Safety Coding Level of Care Code ED [employer] for Lindsay Jacobson
[2023-12-29 11:25] LABS: Basophils % 0.4 %; Eosinophils # 0.3 10^3/uL (0.0-0.8); Eosinophils % 3.1 %; Hematocrit 33.7 % (36-47); Lymphocytes # 1.9 10^3/uL (0.8-4.8); Lymphocytes % 21.2 %; Mean Corpuscular HGB Conc 31.8 g/dL (30-55); Mean Corpuscular Hemoglobin 31.1 pg (27-33); Mean Platelet Volume 9.2 fL (7.4-10.4); Monocytes # 0.9 10^3/uL (0.2-0.9); Neutrophils # 5.84 10^3/uL (1.8-7.7); Neutrophils % 64.4 %; Nucleated Red Blood Cells % 0 %; Platelet Count 184 10^3/cmm (157-399); Red Blood Count 3.44 10^6/uL (3.85-5.65); Red Cell Distribution Width 13.9 % (12.1-15.1); White Blood Count 9.07 10^3/uL (3.29-11.43)
[2023-12-29 11:39] LABS: INR 0.99 (0.8-1.2)
[2023-12-29 11:45] VITALS: BP 129/57
[2023-12-29 11:50] LABS: Alanine Aminotransferase 18 U/L (0-33); Albumin Level 4.2 g/dL (3.5-5.2); Alkaline Phosphatase 66 U/L (35-105); Anion Gap 17.9 (5-19); Aspartate Amino Transferase 29 U/L (0-32); Blood Urea Nitrogen 43 mg/dL (8-23); Calcium 9.1 mg/dL (8.5-10.5); Carbon Dioxide 21 mmol/L (22-29); Chloride 102 mmol/L (98-107); Glucose 114 mg/dL (65-115); Osmolality Calculated 294 mOsm/kg (285-295); Potassium 4.9 mmol/L (3.5-5.1); Sodium 136 mmol/L (136-145); Total Bilirubin 0.4 mg/dL (0.15-1.2); Total Protein 7.2 g/dL (6.6-8.7)
[2023-12-29 11:51] LABS: Creatinine Clr Calc Pharmacy 23.6838
[2023-12-29 12:00] VITALS: BP 114/63
[2023-12-29 12:25] VITALS: BP 106/63; O2SAT 95
[2023-12-29 12:45] VITALS: BP 101/62; O2SAT 93
[2023-12-29 13:08] VITALS: BP 101/62; PULSE 87; O2SAT 92
--- NOTE | 2023-12-29 17:59 | DCPLANNER ---
messaged ortho for er f/u
== END 2023-12-29 13:10 | disposition home or self-care (01) ==
PROVIDERS: Emergency Provider Emergency Medicine; PCP Family Medicine
DX: S32.592A Other specified fracture of left pubis, initial encounter for closed fracture (principal); M25.512 Pain in left shoulder; R51.9 Headache, unspecified; M54.2 Cervicalgia; W19.XXXA Unspecified fall, initial encounter
CPT/HCPCS: 36415; 70450; 70486; 72125; 73030; 73130; 73502; 73700; 80053; 85025; 85610; 99284

== ENCOUNTER → 2024-01-07 10:55 | Outpatient (BNVA) | payer MEDICARE, OTHER, SELFPAY | PROVIDERS: PCP Family Medicine; Visit Provider Student in an Organized Health Care Education/Training Program | DX: S32.592A Other specified fracture of left pubis, initial encounter for closed fracture (principal); X58.XXXA Exposure to other specified factors, initial encounter; M53.3 Sacrococcygeal disorders, not elsewhere classified | CPT/HCPCS: 27197; 72170; 73502; 99204 ==

== ENCOUNTER 2024-01-10 08:07 | Outpatient (CLI) | payer MEDICARE, OTHER, SELFPAY ==
--- NOTE | 2024-01-10 08:00 | CT_ITS ---
WS: [id number] CT PELVIS NONCONTRAST HISTORY: MULTIPLE PELVIS FRACTURES TECHNIQUE: Contiguous imaging is performed of the pelvis without contrast. Coronal and sagittal refor mats are reviewed. All CT scans at [facility] use at least one of these dose optimization shadi hniques: automated exposure control; mA and/or kV adjustment per patient size (includes targeted exam s where dose is matched to clinical indication); or iterative reconstruction. DLP: 243.90 mGy.cm COMPARISON: CT LEFT hip 12/29/2023, pelvis radiograph 01/07/2024 Advanced osteopenia. Reidentified are fractures involving the superior and inferior LEFT pubic rami. Fractures are slightly comminuted. Fractures extend towards the symphysis pubis. No definite widening of the symphysis pubis. No callus formation. No interval progression of displacement. No sacral frac ture. SI joints contain a small amount of degenerative air. Normal position of the LEFT hip. LEFT iain tabulum and proximal LEFT femur appear intact. No fractures. No callus formation or healing. Visualized RIGHT hip and is negative. There is a slight change in contour of the RIGHT inferior pubic rami and possible adjacent callus formation. This may be an incomplete fracture. There is very sligh t buckling of the cortex. Moderate calcification in the abdominal aorta through the iliac arteries to the femoral arteries. Mil d edema in the soft tissues adjacent to the LEFT hip. Chondrocalcinosis noted adjacent to each femoral head. CT/CT pelvis wo con [id number] IMPRESSION: 1. Comminuted fractures involving the LEFT superior and inferior pubic rami ar e similar to the prior study with no progression. 2. No RIGHT hip fracture. 3. Suspect incomplete fracture of the RIGHT inferior pubic rami due to the [place] of the cortex. There is a small amount of adjacent callus formation.
== END 2024-01-10 08:08 | disposition home or self-care (01) ==
PROVIDERS: PCP Family Medicine; Visit Provider Student in an Organized Health Care Education/Training Program
DX: S32.592A Other specified fracture of left pubis, initial encounter for closed fracture (principal); M53.3 Sacrococcygeal disorders, not elsewhere classified; M85.80 Other specified disorders of bone density and structure, unspecified site; R93.7 Abnormal findings on diagnostic imaging of other parts of musculoskeletal system
CPT/HCPCS: 72192

== ENCOUNTER → 2024-01-16 15:05 | Outpatient (BNVA) | payer MEDICARE, OTHER, SELFPAY | PROVIDERS: PCP Family Medicine; Visit Provider Nurse Practitioner | DX: R30.0 Dysuria (principal); N39.0 Urinary tract infection, site not specified | CPT/HCPCS: 81000; 87086 ==